=== PATIENT | male | born 1960 | race Caucasian/White ===

== ENCOUNTER 2018-12-30 22:17 | Emergency (ER) | payer OTHER ==
[~2018-12-30] VITALS: Ht 172.7 cm; Wt 114.3 kg
[2018-12-30 22:22] VITALS: BP 199/94
--- NOTE | 2018-12-30 22:32 | NUR ---
TO LOBBY, VSS.
--- NOTE | 2018-12-30 22:48 | NUR ---
PT TAKEN TO XRAY FROM [facility]
[2018-12-30] MEDS ORDERED: KETOROLAC 60 MG/2 ML VIAL IM ONE (22:55)
--- NOTE | 2018-12-30 22:58 | NUR ---
PT RETURN FROM XRAY TO BED 4
--- NOTE | 2018-12-30 23:10 | NUR ---
PT BIB SELF C/O LEFT ARM AND RIGHT KNEE PAIN AFTER FALL. PT STATES HE WAS WALKING ON IRON AND HAD BAD SHOES ON CAUSING HIM TO SLIP. DENIES LOC, N/V/D. PT STATES 8/10 ACHING PAIN AT THIS TIME. NO DEFORMITY NOTED TO RIGHT ARM, RADIAL PULSES EQUAL AND STRONG BL. PASSIVE ROM TO LEFT ARM AT THIS TIME. RIGHT KNEE: NO REDNESS, MILD SWELLING, NO DISCHARGE OR DEFORMITY NOTED AT THIS TIME; PEDIAL PULSES STRONG AND EQUAL BL. AAOX4. PT ACTING APPROPRIATLY. PT IN BED; BED IN LOWER LOCKED POSITION. ER MD MADE AWARE OF PT STATUS. WILL CONTINUE TO MONITOR. PMH: DM, HTN, HYPERLIPIDEMIA
[2018-12-31] MEDS ORDERED: MORPHINE SULFATE 4 MG/ML SYR IM ONE (00:50)
--- NOTE | 2018-12-31 00:58 | NUR ---
Dr. Borden evaluating patient at bedside.
[2018-12-31 01:15] VITALS: BP 144/90
--- NOTE | 2018-12-31 01:15 | NUR ---
Patient discharged with v/s stable. Written and verbal after care instructions given and explained. Patient alert, oriented and verbalized understanding of instructions. Ambulatory with steady gait. All questions addressed prior to discharge. ID band removed. Patient advised to follow up with PMD. Rx of MOTRIN AND NORCO given. Patient educated on indication of medication including possible reaction and side effects. Opportunity to ask questions provided and answered.
== END 2018-12-31 01:15 | disposition home or self-care (01) ==
LOC: MED 22:17
DX: S42.202A Unspecified fracture of upper end of left humerus, initial encounter for closed fracture (principal); E11.9 Type 2 diabetes mellitus without complications; I10 Essential (primary) hypertension; Z95.1 Presence of aortocoronary bypass graft; W19.XXXA Unspecified fall, initial encounter; Y93.89 Activity, other specified; Y92.89 Other specified places as the place of occurrence of the external cause; Y99.8 Other external cause status
CPT/HCPCS: 71045; 73030; 96372; 99283; J1885; J2270

== ENCOUNTER 2020-05-11 09:08 | Day surgery (SDC) | payer OTHER, SELFPAY ==
[~2020-05-11] VITALS: Ht 175 cm; Wt 95.3 kg
[2020-05-11] MEDS ORDERED: fentaNYL citrate 0.05 MG/ML VIAL ONE (11:50)
[2020-05-11] MEDS ORDERED: LIDOCAINE 2% 100 MG/5 ML UJET TP ONE (11:51)
[2020-05-11] MEDS ORDERED: MIDAZOLAM 2 MG/2 ML VIAL ONE (11:51)
[2020-05-11] MEDS ORDERED: fentaNYL citrate 0.05 MG/ML VIAL IVP ONE (12:55)
[2020-05-11] MEDS ORDERED: MIDAZOLAM 2 MG/2 ML VIAL IVP ONE (12:55)
== END 2020-05-11 13:28 | disposition home or self-care (01) ==
LOC: MDS 09:08 → MFCC 09:08 → MDS 13:28
PROVIDERS: ATTEND Internal Medicine Gastroenterology
DX: K59.00 Constipation, unspecified (principal); K63.5 Polyp of colon; Z80.0 Family history of malignant neoplasm of digestive organs; E11.9 Type 2 diabetes mellitus without complications; F17.200 Nicotine dependence, unspecified, uncomplicated; F17.210 Nicotine dependence, cigarettes, uncomplicated; Z79.82 Long term (current) use of aspirin; Z79.01 Long term (current) use of anticoagulants; Z79.899 Other long term (current) drug therapy; Z98.890 Other specified postprocedural states; Z20.828 Contact with and (suspected) exposure to other viral communicable diseases
CPT/HCPCS: 45380; 45385; 88305; J2250; J3010; U0003